=== PATIENT | female | born 1985 | race Caucasian/White ===

== ENCOUNTER 2024-12-09 04:42 | Observation (INO) | payer OTHER ==
[2024-12-09] MEDS ORDERED: Calcium Carbonate 500 MG ChewTAB PO PRN (05:34)
[2024-12-09] MEDS ORDERED: Ondansetron PF 4 MG/2 ML Vial IVP PRN (05:34)
[2024-12-09] MEDS ORDERED: Electrolyte Replacement Protocol 1 EACH FS SCH (05:45)
[2024-12-09 05:58] LABS: #Basophils 0.06 10x3/uL (0.0-0.2); #Eosinophils 0.17 10x3/uL (0.0-0.7); #Monocytes 0.78 10x3/uL (0.11-0.59); #Neutrophils 3.34 10x3/uL (1.40-6.50); %Basophils 0.7 % (0.0-1.0); %Eosinophils 2.0 % (0.0-10.0); %Lymphocytes 47.0 % (21.0-51.0); %Monocytes 9.4 % (0.0-10.0); %Neutrophils 40.3 % (42.0-75.0); Hematocrit 35.4 % (36.0-47.0); Hemoglobin 12.1 g/dL (12.0-16.0); Mean Corpuscular Hemoglobin 31.8 pg (27.0-31.0); Mean Corpuscular Volume 93.2 fL (78.0-98.0); Platelet Count 200 10x3/uL (130-400); Red Blood Cell (RBC) Count 3.80 mill/uL (4.20-5.40); White Blood Cell (WBC) Count 8.30 10x3/uL (4.8-10.8)
[2024-12-09 06:20] LABS: ALT (SGPT) 19 U/L (Less than 34); AST (SGOT) 28 U/L (11-34); Albumin 3.9 g/dL (3.1-4.5); Alkaline Phosphatase 60 U/L (40-110); Anion Gap 12 mmol/L (10-20); BUN (Urea Nitrogen) 10 mg/dL (7.0-18.7); Bilirubin, Total 0.2 mg/dL (0.3-1.2); Calc. Creatinine Clearance 0 mL/min (70-130); Calcium 8.9 mg/dL (7.8-10.44); Carbon Dioxide 26 mmol/L (22-29); Chloride 105 mmol/L (98-107); Globulin 2.7 g/dL (2.4-3.5); Glucose 133 mg/dL (70-105); Potassium 3.8 mmol/L (3.5-5.1); Sodium 139 mmol/L (136-145)
[2024-12-09 06:57] VITALS: BMI 26.2
[2024-12-09] MEDS ORDERED: HYDROmorphone 0.5 MG/0.5 ML SYRINGE SLOW IVP PRN (07:21)
[2024-12-09] MEDS ORDERED: Methocarbamol 500 MG TAB PO PRN (07:21)
[2024-12-09] MEDS ORDERED: Bisacodyl 10 MG SUPP PR PRN (07:23)
[2024-12-09] MEDS ORDERED: Melatonin 3 MG TAB PO PRN (07:23)
[2024-12-09] MEDS: HYDROmorphone 0.5 MG/0.5 ML SYRINGE SLOW IVP PRN (09:00)
[2024-12-09] MEDS: Acetaminophen 325 MG TAB PO PRN (09:08)
[2024-12-09] MEDS: Famotidine 20 MG TAB PO SCH (10:09)
[2024-12-09] MEDS: Gabapentin 300 MG CAP PO SCH (10:10)
[2024-12-09] MEDS: Enoxaparin 40 MG (0.4 mL) SYRINGE SC SCH (10:11)
[2024-12-09] MEDS ORDERED: Ketorolac Tromethamine 30 MG (1 mL) VIAL IVP PRN (10:37)
[2024-12-09] MEDS ORDERED: SODIUM CHLORIDE 0.9% IVPB SCH (11:15)
[2024-12-09] MEDS ORDERED: METHOCARBAMOL IVPB SCH (11:15)
[2024-12-09 11:45] VITALS: BP 124/85; TEMP 97.5
[2024-12-09] MEDS ORDERED: Methocarbamol 1 GM in Sodium Chloride 0.9% 100 ML IVPB PRN (12:05)
== END 2024-12-09 13:53 | disposition home or self-care (01) ==
LOC: SURG B 04:42
PROVIDERS: ADMIT Student in an Organized Health Care Education/Training Program; ATTEND Student in an Organized Health Care Education/Training Program
DX: R20.2 Paresthesia of skin (principal); M45.9 Ankylosing spondylitis of unspecified sites in spine
CPT/HCPCS: 36415; 72148; 80053; 85025; 96372; 96374; 96375; G0378; J1100; J1171; J1650; J3010

== ENCOUNTER 2025-01-06 15:56 | Outpatient (CLI) | payer OTHER | END 2025-01-06 15:57 | disposition home or self-care (01) | LOC: SCSRAD 15:56 | PROVIDERS: ATTEND Internal Medicine Rheumatology | DX: M45.7 Ankylosing spondylitis of lumbosacral region (principal); M47.816 Spondylosis without myelopathy or radiculopathy, lumbar region; M43.16 Spondylolisthesis, lumbar region; M46.1 Sacroiliitis, not elsewhere classified | CPT/HCPCS: 72100; 72202 ==